=== PATIENT | female | born 1980 | race Hispanic/Latino ===

== ENCOUNTER 2023-10-08 12:30 | Emergency (ER) | payer OTHER ==
[~2023-10-08] VITALS: Ht 154.9 cm; Wt 73.5 kg
[~2023-10-08 12:30] MED LIST: CYCLOBENZAPRINE5 MG PO
[2023-10-08 12:35] VITALS: PULSE 92; RESP 18; TEMP 98.8; O2SAT 99
[2023-10-08] MEDS ORDERED: NAPROSYN500 MG PO (13:23)
[2023-10-08] MEDS ORDERED: CYCLOBENZAPRINE10 MG PO (13:28)
== END 2023-10-08 13:45 | disposition home or self-care (01) ==
LOC: FSED 12:31
DX: S13.4XXA Sprain of ligaments of cervical spine, initial encounter (principal); S20.214A Contusion of middle front wall of thorax, initial encounter; S30.1XXA Contusion of abdominal wall, initial encounter; V43.52XA Car driver injured in collision with other type car in traffic accident, initial encounter; Y92.488 Other paved roadways as the place of occurrence of the external cause; F41.9 Anxiety disorder, unspecified; F90.9 Attention-deficit hyperactivity disorder, unspecified type
CPT/HCPCS: 99282